=== PATIENT | female | born 1965 | race Caucasian/White ===

== ENCOUNTER 2016-09-23 15:24 | Inpatient (IN) | payer BC ==
[2016-09-23] MEDS ORDERED: SODIUM CHLORIDE 0.9% 1,000 ML IV STA ×2 (18:37)
[2016-09-23] MEDS ORDERED: ONDANSETRON 4 MG/2 ML VIAL IVP STA (18:37)
[2016-09-23 18:44] LABS: Glucose,Whole Blood 467 mg/dL (75-99)
[2016-09-23 18:58] LABS: Appearance,Urine Clear (Clear); Bilirubin,Urine Negative (Negative); Glucose,Urine (UA) 4+ (Negative); Leukocyte Esterase,Urine Negative (Negative); Nitrite,Urine Negative (Negative); Protein,Urine Negative (Negative); Specific Gravity,Urine 1.012 (1.001-1.035); UA Billing (MACRO vs. MICRO) CHEM; Urobilinogen,Urine <2.0 mg/dL (<2.0)
[2016-09-23 19:12] LABS: Basophils # (A) 0.1 k/uL (0-0.2); Basophils % (A) 1 %; CH 29.7; CHCM 27.8; Eosinophils % (A) 0 %; HCT 35.9 % (34.0-46.0); HDW 2.39; HGB 10.3 gm/dL (11.4-16.0); Hypochromasia Marked; Luc # (Auto) 0.14; Luc % (Auto) 2; Lymphocytes # (A) 0.4 k/uL (1.0-4.8); Lymphocytes % (A) 6 %; MCH 30.9 pg (25.0-35.0); MCHC 28.7 g/dL (31.0-37.0); Macrocytosis Marked; Mean Platelet Volume 8.6; Monocytes # (A) 0.5 k/uL (0-1.0); Monocytes % (A) 8 %; Neutrophils # (A) 5.6 k/uL (1.3-7.7); Neutrophils % (A) 83 %; RBC 3.34 m/uL (3.80-5.40); RDW 15.2 % (11.5-15.5); WBC 6.7 k/uL (3.8-10.6); WBC (Perox) 6.36
[2016-09-23 19:13] LABS: MCV 107.4 fL (80.0-100.0)
[2016-09-23 19:22] LABS: ALT 33 U/L (9-52); AST 17 U/L (14-36); Alkaline Phosphatase 65 U/L (38-126); Amylase <30 U/L (30-110); Anion Gap 22 mmol/L; Blood Urea Nitrogen 22 mg/dL (7-17); Chloride 112 mmol/L (98-107); Glucose 343 mg/dL (74-99); Non-African American GFR(MDRD) >60 (>60 ml/min/1.73 sqM); Potassium 3.7 mmol/L (3.5-5.1); Sodium 143 mmol/L (137-145); Total Bilirubin 0.3 mg/dL (0.2-1.3); Total Protein 4.4 g/dL (6.3-8.2)
[2016-09-23 19:24] LABS: Calcium 6.2 mg/dL (8.4-10.2); Carbon Dioxide 9 mmol/L (22-30)
[2016-09-23 19:29] LABS: Ketones,Urine 4+ (Negative)
[2016-09-23] MEDS ORDERED: CALCIUM GLUCONATE 1,000 MG in SODIUM CHLORIDE 0.9% 100 ML IVPB ONE (19:34)
[2016-09-23 19:47] LABS: Creatine Kinase 87 U/L (30-135)
--- NOTE | 2016-09-23 19:58 | XR ---
EXAMINATION TYPE: XR chest 2V DATE OF EXAM: 09/23/2016 7:36 PM COMPARISON: 07/10/2016 HISTORY: Nausea and vomiting TECHNIQUE: Frontal and lateral views of the chest are obtained. FINDINGS: There is patchy linear density at the lung bases. There are no hilar masses. There is no h eart failure. Bony thorax appears intact. IMPRESSION: Patchy basilar atelectasis is present and is the same or worse than last exam. No gross heart failure.
--- NOTE | 2016-09-23 19:59 | XR ---
EXAMINATION TYPE: XR KUB DATE OF EXAM: 09/23/2016 7:36 PM COMPARISON: 07/06/2016 HISTORY: Nausea and vomiting TECHNIQUE: 2 views FINDINGS: There is no sign of intestinal obstruction or pneumoperitoneum. Fecal pattern is normal. Th ere is a left hip prosthesis. There is no sign of a mass. There are no pathologic calcifications over the kidneys. IMPRESSION: Nonacute abdomen. No change.
[2016-09-23 20:00] LABS: Troponin I <0.012 ng/mL (0.000-0.034)
--- NOTE | 2016-09-23 20:06 | ED ---
General Adult HPI - General Chief complaint: Nausea/Vomiting/Diarrhea Stated complaint: Abd Pain/Vomiting Time Seen by Provider: 09/23/16 18:22 Source: patient, RN notes reviewed Mode of arrival: wheelchair Limitations: no limitations - History of Present Illness Initial comments: Patient is a 51-year-old female who presents emergency room today with a chief complaint of symptoms of nausea vomiting that began yesterday. She does admit that she's had some epigastric discomfort. Patient does admit to some radiation up into the chest. Patient states all the symptoms started yesterday. States it feels similar to symptoms that she had when she was diagnosed with diverticulitis in the past. Patient does admit that she's had normal bowel movements and flatulence. She denies any other complaints or symptoms. Patient denies any recent fever, chills, shortness of breath, chest pain, back pain, numbness or tingling, dysuria or hematuria, constipation or diarrhea, headaches or visual changes, or any other complaints. - Related Data Home Medications Medication Instructions Recorded Confirmed HYDROcodone/APAP 10-325MG [[place] 1 tab PO BID 05/14/14 09/23/16 10-325] Chlorthalidone 25 mg PO DAILY 07/06/16 09/23/16 Cyclobenzaprine [Flexeril] 10 mg PO TID 07/06/16 09/23/16 Gabapentin 800 mg PO TID 07/06/16 09/23/16 Cholecalciferol [Vitamin D3] 1,000 unit PO DAILY 08/20/16 09/23/16 Lisinopril [Zestril] 10 mg PO DAILY 08/20/16 09/23/16 Magnesium 400 mg PO DAILY 08/20/16 09/23/16 metFORMIN HCL 1,000 mg PO BID 08/20/16 09/23/16 Insulin Aspart [NovoLOG] See Protocol SQ AC-TID 09/23/16 09/23/16 Allergies Allergy/AdvReac Type Severity Reaction Status Date / Time insulin detemir Allergy Unknown Verified 09/23/16 19:25 [From Levemir] Review of Systems ROS Statement: Those systems with pertinent positive or pertinent negative responses have been documented in the HPI. ROS Other: All systems not noted in ROS Statement are negative. Past Medical History Past Medical History: Cancer, Diabetes Mellitus, Hypertension Additional Past Medical History / Comment(s): Cervical degenerative disc disease , L breast cancer with surgery/chemo and radiation in 2012, NIDDM type II. History of Any Multi-Drug Resistant Organisms: None Reported Past Surgical History: Breast Surgery, Joint Replacement, Orthopedic Surgery Additional Past Surgical History / Comment(s): R breast lumpectomy, L hip arthroplasty, numerous bilateral feet surgeries-neuromas/bone spurs and R ankle fractured 3 times with surgical repairs each time. Mediport removal Past Psychological History: No Psychological Hx Reported Additional Psychological History / Comment(s): Pt resides alone. She is a pharmacist. She helps care for her parents. She is independent. Smoking Status: Former smoker Past Alcohol Use History: Occasional Additional Past Alcohol Use History / Comment(s): Pt started smoking at the age of 15yrs (1979) and quit in 2011 Past Drug Use History: None Reported - Past Family History Father Family Medical History: Congestive Heart Failure (CHF) Mother Family Medical History: No Reported History General Exam - General Exam Comments Initial Comments: General: The patient is awake and alert, in no distress, and does not appear acutely ill. Eye: Pupils are equal, round and reactive to light, extra-ocular movements are intact. No nystagmus. There is normal conjunctiva bilaterally. No signs of icterus. Ears, nose, mouth and throat: There are moist mucous membranes and no oral lesions. Neck: The neck is supple, there is no tenderness or JVD. Cardiovascular: There is a regular rate and rhythm. No murmur, rub or gallop is appreciated. Respiratory: Lungs are clear to auscultation, respirations are non-labored, breath sounds are equal. No wheezes, stridor, rales, or rhonchi. Gastrointestinal: Normal appearance and appear normal bowel sounds. Abdomen soft on palpation. Patient does have tenderness epigastric. No rebound tenderness. No guarding. Musculoskeletal: Normal ROM, no tenderness. Strength 5/5. Sensation intact. Pulses equal bilaterally 2+. Neurological: A&O x 3. CN II-XII intact, There are no obvious motor or sensory deficits. Coordination appears grossly intact. Speech is normal. Skin: Skin is warm and dry and no rashes or lesions are noted. Psychiatric: Cooperative, appropriate mood & affect, normal judgment. Limitations: no limitations Course Vital Signs 09/23/16 15:49 Temperature 97.5 F L Pulse Rate 104 H Respiratory 20 Rate Blood Pressure 133/72 O2 Sat by Pulse 100 Oximetry Medical Decision Making - Medical Decision Making Patient's labs reviewed here in the emergency room. Shows hypocalcemia and hyper glycemia. CO2 is 9. Remaining labs reviewed. Patient feeling better after IV bolus. Patient will be started on a insulin drip has acetone positive. She be admitted for DKA and started on protocol. Patient is from out of town and admitted to hospitalist. - Lab Data Result diagrams: 09/23/16 19:03 09/23/16 19:03 Lab Results 09/23/16 09/23/16 09/23/16 Range/Units 18:43 19:03 19:03 WBC (3.8-10.6) k/uL RBC (3.80-5.40) m/uL Hgb (11.4-16.0) gm/dL Hct (34.0-46.0) % MCV (80.0-100.0) fL MCH (25.0-35.0) pg MCHC (31.0-37.0) g/dL RDW (11.5-15.5) % Plt Count (150-450) k/uL Neutrophils % % Lymphocytes % % Monocytes % % Eosinophils % % Basophils % % Neutrophils # (1.3-7.7) k/uL Lymphocytes # (1.0-4.8) k/uL Monocytes # (0-1.0) k/uL Eosinophils # (0-0.7) k/uL Basophils # (0-0.2) k/uL Hypochromasia Macrocytosis Sodium 143 (137-145) mmol/L Potassium 3.7 (3.5-5.1) mmol/L Chloride 112 H (98-107) mmol/L Carbon Dioxide 9 L* (22-30) mmol/L Anion Gap 22 mmol/L BUN 22 H (7-17) mg/dL Creatinine 0.60 (0.52-1.04) mg/dL Est GFR (MDRD) Af Amer >60 (>60 ml/min/1.73 sqM) Est GFR (MDRD) Non-Af >60 (>60 ml/min/1.73 sqM) Glucose 343 H (74-99) mg/dL POC Glucose (mg/dL) 467 H (75-99) mg/dL POC Glu Family Lawyer ID Susanna Smiley Calcium 6.2 L* (8.4-10.2) mg/dL Total Bilirubin 0.3 (0.2-1.3) mg/dL AST 17 (14-36) U/L ALT 33 (9-52) U/L Alkaline Phosphatase 65 (38-126) U/L Total Creatine Kinase 87 (30-135) U/L Total Protein 4.4 L (6.3-8.2) g/dL Albumin 2.4 L (3.5-5.0) g/dL Amylase <30 L (30-110) U/L Lipase 21 L (23-300) U/L Urine Color Urine Appearance (Clear) Urine pH (5.0-8.0) Ur Specific [place] (1.001-1.035) Urine Protein (Negative) Urine Glucose (UA) (Negative) Urine Ketones (Negative) Urine Blood (Negative) Urine Nitrate (Negative) Urine Bilirubin (Negative) Urine Urobilinogen (<2.0) mg/dL Ur Leukocyte Esterase (Negative) Acetone, Qual Positive (Negative) 09/23/16 09/23/16 Range/Units 19:03 19:05 WBC 6.7 (3.8-10.6) k/uL RBC 3.34 L (3.80-5.40) m/uL Hgb 10.3 L (11.4-16.0) gm/dL Hct 35.9 (34.0-46.0) % MCV 107.4 H D (80.0-100.0) fL MCH 30.9 (25.0-35.0) pg MCHC 28.7 L (31.0-37.0) g/dL RDW 15.2 (11.5-15.5) % Plt Count 209 (150-450) k/uL Neutrophils % 83 % Lymphocytes % 6 % Monocytes % 8 % Eosinophils % 0 % Basophils % 1 % Neutrophils # 5.6 (1.3-7.7) k/uL Lymphocytes # 0.4 L (1.0-4.8) k/uL Monocytes # 0.5 (0-1.0) k/uL Eosinophils # 0.0 (0-0.7) k/uL Basophils # 0.1 (0-0.2) k/uL Hypochromasia Marked Macrocytosis Marked Sodium (137-145) mmol/L Potassium (3.5-5.1) mmol/L Chloride (98-107) mmol/L Carbon Dioxide (22-30) mmol/L Anion Gap mmol/L BUN (7-17) mg/dL Creatinine (0.52-1.04) mg/dL Est GFR (MDRD) Af Amer (>60 ml/min/1.73 sqM) Est GFR (MDRD) Non-Af (>60 ml/min/1.73 sqM) Glucose (74-99) mg/dL POC Glucose (mg/dL) (75-99) mg/dL POC Glu Family Lawyer ID Calcium (8.4-10.2) mg/dL Total Bilirubin (0.2-1.3) mg/dL AST (14-36) U/L ALT (9-52) U/L Alkaline Phosphatase (38-126) U/L Total Creatine Kinase (30-135) U/L Total Protein (6.3-8.2) g/dL Albumin (3.5-5.0) g/dL Amylase (30-110) U/L Lipase (23-300) U/L Urine Color Colorless Urine Appearance Clear (Clear) Urine pH 5.0 (5.0-8.0) Ur Specific [place] 1.012 (1.001-1.035) Urine Protein Negative (Negative) Urine Glucose (UA) 4+ H (Negative) Urine Ketones 4+ H (Negative) Urine Blood Negative (Negative) Urine Nitrate Negative (Negative) Urine Bilirubin Negative (Negative) Urine Urobilinogen <2.0 (<2.0) mg/dL Ur Leukocyte Esterase Negative (Negative) Acetone, Qual (Negative) Disposition Clinical Impression: DKA (diabetic ketoacidoses), Hypocalcemia Disposition: ADMITTED IP TO THIS [facility] Condition: Stable Time of Disposition: 20:05
[2016-09-23] MEDS ORDERED: ONDANSETRON 4 MG/2 ML VIAL IVP PRN (20:49)
[2016-09-23 21:15] LABS: Glucose,Whole Blood 541 mg/dL (75-99)
[2016-09-23] MEDS: INSULIN REGULAR 100 UNIT in SODIUM CHLORIDE 0.9% 100 ML IV SCH (21:28)
[2016-09-23] MEDS: SODIUM CHLORIDE 0.9% 1,000 ML IV SCH (21:30)
[2016-09-23 22:29] LABS: Glucose,Whole Blood >600 mg/dL (75-99)
[2016-09-23 22:31] LABS: Glucose,Whole Blood 572 mg/dL (75-99)
[2016-09-23 23:13] LABS: Hemoglobin A1C 8.5 % (4.2-6.1)
[2016-09-23 23:30] LABS: Glucose,Whole Blood 462 mg/dL (75-99)
[2016-09-24 00:14] LABS: Phosphorous 5.4 mg/dL (2.5-4.5); Potassium 5.5 mmol/L (3.5-5.1)
[2016-09-24 00:27] LABS: Glucose,Whole Blood 404 mg/dL (75-99)
[2016-09-24] MEDS: SODIUM CHLORIDE 0.9% 1,000 ML IV SCH (00:48)
[2016-09-24 01:34] LABS: Glucose,Whole Blood 343 mg/dL (75-99)
[2016-09-24 02:25] LABS: Glucose,Whole Blood 177 mg/dL (75-99)
[2016-09-24 03:26] LABS: Anion Gap 17 mmol/L; Blood Urea Nitrogen 28 mg/dL (7-17); Carbon Dioxide 20 mmol/L (22-30); Chloride 106 mmol/L (98-107); Glucose 147 mg/dL (74-99); Non-African American GFR(MDRD) >60 (>60 ml/min/1.73 sqM); Phosphorous 2.6 mg/dL (2.5-4.5); Potassium 4.7 mmol/L (3.5-5.1); Sodium 143 mmol/L (137-145)
[2016-09-24 03:34] LABS: Glucose,Whole Blood 105 mg/dL (75-99)
[2016-09-24] MEDS: D5-0.45% NACL WITH KCL 20MEQ/L 1,000 ML IV SCH ×2 (04:24→11:07)
[2016-09-24 04:57] LABS: Glucose,Whole Blood 80 mg/dL (75-99)
[2016-09-24 05:35] LABS: Glucose,Whole Blood 105 mg/dL (75-99)
[2016-09-24 06:50] LABS: Glucose,Whole Blood 131 mg/dL (75-99)
[2016-09-24 07:11] LABS: Anion Gap 16 mmol/L; Blood Urea Nitrogen 25 mg/dL (7-17); Carbon Dioxide 19 mmol/L (22-30); Chloride 107 mmol/L (98-107); Glucose 128 mg/dL (74-99); Non-African American GFR(MDRD) >60 (>60 ml/min/1.73 sqM); Potassium 4.7 mmol/L (3.5-5.1); Sodium 142 mmol/L (137-145)
[2016-09-24 08:07] LABS: Glucose,Whole Blood 153 mg/dL (75-99)
[2016-09-24 08:53] LABS: Glucose,Whole Blood 191 mg/dL (75-99)
[2016-09-24] MEDS: INSULIN REGULAR 100 UNIT in SODIUM CHLORIDE 0.9% 100 ML IV SCH (09:31)
[2016-09-24 10:11] LABS: Glucose,Whole Blood 218 mg/dL (75-99)
[2016-09-24 12:10] LABS: Glucose,Whole Blood 219 mg/dL (75-99)
[2016-09-24 13:03] LABS: Anion Gap 12 mmol/L; Blood Urea Nitrogen 20 mg/dL (7-17); Calcium 8.7 mg/dL (8.4-10.2); Carbon Dioxide 21 mmol/L (22-30); Chloride 105 mmol/L (98-107); Glucose 215 mg/dL (74-99); Non-African American GFR(MDRD) >60 (>60 ml/min/1.73 sqM); Phosphorous 2.5 mg/dL (2.5-4.5); Potassium 4.5 mmol/L (3.5-5.1); Sodium 138 mmol/L (137-145)
[2016-09-24 13:09] VITALS: BMI 31.6
[2016-09-24 13:23] LABS: Glucose,Whole Blood 214 mg/dL (75-99)
[2016-09-24 15:44] LABS: Glucose,Whole Blood 286 mg/dL (75-99)
[2016-09-24] MEDS ORDERED: INSULIN GLARGINE 100 UNIT/ML 10 ML VIAL SQ SCH ×2 (16:00→21:00)
[2016-09-24] MEDS: GABAPENTIN 400 MG CAP PO SCH ×2 (16:06→20:40)
[2016-09-24] MEDS: PANTOPRAZOLE 40 MG/10 ML VIAL IVP SCH ×2 (16:06→20:40)
[2016-09-24] MEDS: CYCLOBENZAPRINE 10 MG TAB PO SCH ×2 (16:06→20:40)
[2016-09-24 16:30] LABS: Anion Gap 12 mmol/L; Blood Urea Nitrogen 17 mg/dL (7-17); Calcium 8.9 mg/dL (8.4-10.2); Carbon Dioxide 24 mmol/L (22-30); Chloride 102 mmol/L (98-107); Glucose 261 mg/dL (74-99); Non-African American GFR(MDRD) >60 (>60 ml/min/1.73 sqM); Phosphorous 2.2 mg/dL (2.5-4.5); Potassium 4.8 mmol/L (3.5-5.1); Sodium 138 mmol/L (137-145)
[2016-09-24] MEDS: LACTATED RINGERS 1,000 ML IV SCH ×2 (17:11→20:40)
[2016-09-24 17:13] LABS: Glucose,Whole Blood 243 mg/dL (75-99)
[2016-09-24] MEDS: INSULIN LISPRO (humaLOG) 300 UNIT/3 ML VIAL SQ SCH ×2 (17:23→20:39)
--- NOTE | 2016-09-24 17:39 | HP ---
DATE OF ADMISSION: This patient is a 51-year-old who came in with complaints of nausea, vomiting and epigastric abdominal pain which is burning sensation. Patient was found to be in DKA. Patient's anion gap resolved. Patient has issues in the past. Patient was diagnosed with type 2 diabetes mellitus. My suspicion is that patient may have type 1 diabetes mellitus. Patient was found to be in DKA. Patient's DKA resolved. Apparently patient has issues with Lantus and patient became hypoglycemic with 15 units of Lantus in the past, although I am going to start her on Lantus because she is definitely insulin-deficient, even if it is type 1 or type 2 diabetes mellitus, because of which patient ended up having DKA with anion gap of 23. Because of that reason I had an extensive discussion with the patient and I instructed that patient needs to stay with someone at least for a few days on 10 units of Lantus and sliding scale insulin. Metformin may not help her, because patient is definitely insulin-deficient. Patient may actually have type 1 diabetes mellitus rather than type 2. Patient denied any fever, chills, dysuria. Patient denied any cough, runny nose. REVIEW OF SYSTEMS: CONSTITUTIONAL: No fever, no malaise, no fatigue. HEENT: No recent visual problems or hearing problems. Denied any sore throat. CARDIOVASCULAR: No chest pain, orthopnea, PND, no palpitations, no syncope. PULMONARY: No shortness of breath, no cough, no hemoptysis. GASTROINTESTINAL: As described in HPI. NEUROLOGICAL: No headaches, no weakness, no numbness. HEMATOLOGICAL: Denies any bleeding or petechiae. GENITOURINARY: Denies any burning micturition, frequency, or urgency. MUSCULOSKELETAL/RHEUMATOLOGICAL: Denies any joint pain, swelling, or any muscle pain. ENDOCRINE: Denies any polyuria or polydipsia. The rest of the 14 point review of systems is negative. HOME MEDICATIONS: 1. Ecotrin. 2. Acetaminophen. 3. Chlorthalidone. 4. Cyclobenzaprine. 5. Gabapentin. 6. Cholecalciferol. 7. Magnesium. 8. Metformin. 9. Insulin Aspart. ALLERGIES: INSULIN LEVEMIR. Past medical history is significant for: 1. Breast cancer with history of lumpectomy in the past. 2. Diabetes mellitus; I believe it is type 1 diabetes mellitus. 3. Hypertension. 4. Cervical degenerative disc disease. 5. Right breast lumpectomy. 6. Left hip arthroplasty. SOCIAL HISTORY: Former smoker. Quit smoking years ago. Occasional alcohol use. Denied any drug abuse. FAMILY HISTORY: Father had congestive heart failure. I do not have any mother's history available at this point of time. PHYSICAL EXAMINATION: VITAL SIGNS: Temperature 99.0, pulse of 102, respiratory rate of 18, blood pressure 127/74. Saturating at 94% on room air. GENERAL: The patient is alert and oriented x3, not in any acute distress. Well developed, well nourished. HEENT: Pupils are round and equally reacting to light. EOMI. No scleral icterus. No conjunctival pallor. Normocephalic, atraumatic. No pharyngeal erythema. No thyromegaly. CARDIOVASCULAR: S1 and S2 present. No murmurs, rubs, or gallops. PULMONARY: Chest is clear to auscultation, no wheezing or crackles. ABDOMEN: Soft, nontender, nondistended, normoactive bowel sounds. No palpable organomegaly. MUSCULOSKELETAL: No joint swelling or deformity. EXTREMITIES: No cyanosis, clubbing, or pedal edema. NEUROLOGICAL: Gross neurological examination did not reveal any focal deficits. SKIN: No rashes. LABORATORY DATA: CBC, CMP are abnormal for anion gap and elevated potassium when she came in. Elevated potassium secondary to metabolic acidosis secondary to diabetic ketoacidosis. Creatinine was 1.2; now it is 0.8. Patient's anion gap resolved. Blood sugars improved. When patient came in, her blood sugar was 563. UA was reviewed. Patient has elevated MCV, because of which I will obtain a B12 level. ASSESSMENT AND PLAN: 1. Metabolic acidosis secondary to diabetic ketoacidosis, which improved. Patient will be transitioned to Lantus. Will start her on diet with sliding scale insulin with meals. Patient has history of hypoglycemic episodes in the past with insulin. Management as mentioned above in the history itself. 2. Hypertension. Hold off anti-hypertensive medications because of concerns about intravascular volume depletion and drop in blood pressure. Patient is on lisinopril and chlorthalidone, both of which will be held. 3. Acute renal failure due to intravascular volume depletion from diabetic ketoacidosis, excessive diuresis. 4. Epigastric abdominal pain secondary to diabetic ketoacidosis versus gastritis. Patient was started on Protonix for that. 5. Peripheral neuropathy secondary to diabetic neuropathy. 6. Tachycardia secondary to intravascular volume depletion. Patient's hemoglobin A1C is 8.5. I strongly believe patient will need long-acting insulin. 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
[2016-09-24 20:36] LABS: Glucose,Whole Blood 217 mg/dL (75-99)
[2016-09-24] MEDS: HYDROcodone/APAP 10-325MG 1 EACH TAB PO SCH (20:38)
[2016-09-25 00:20] VITALS: RESP 16
[2016-09-25] MEDS: LACTATED RINGERS 1,000 ML IV SCH ×2 (06:10→08:56)
[2016-09-25 06:13] LABS: Glucose,Whole Blood 197 mg/dL (75-99)
[2016-09-25] MEDS: INSULIN LISPRO (humaLOG) 300 UNIT/3 ML VIAL SQ SCH ×2 (06:34→12:46)
[2016-09-25] MEDS: HYDROcodone/APAP 10-325MG 1 EACH TAB PO SCH (06:43)
[2016-09-25] MEDS: PANTOPRAZOLE 40 MG/10 ML VIAL IVP SCH (08:57)
[2016-09-25] MEDS ORDERED: MAGNESIUM OXIDE 400 MG TAB PO SCH (09:00)
[2016-09-25] MEDS: GABAPENTIN 400 MG CAP PO SCH (09:00)
[2016-09-25] MEDS: CYCLOBENZAPRINE 10 MG TAB PO SCH (09:00)
[2016-09-25 11:47] LABS: Glucose,Whole Blood 247 mg/dL (75-99)
[2016-09-25] MEDS ORDERED: CHOLECALCIFEROL 1,000 UNIT TAB PO SCH (12:00)
[2016-09-25 13:44] VITALS: BP 139/91; PULSE 81; TEMP 98.4
--- NOTE | 2016-09-25 14:11 | US ---
EXAMINATION TYPE: US gallbladder DATE OF EXAM: 09/25/2016 11:56 AM COMPARISON: CT abd/chest/pelvis 07/09/2016 CLINICAL HISTORY: elevated liver enzymes. EXAM MEASUREMENTS: Liver Length: 16.8 cm Gallbladder Wall: 0.2 cm CBD: 0.6 cm Right Kidney: 10.2x 4.2 x 5.0 cm FINDINGS: Pancreas: Obscured by bowel gas Liver: slightly inhomogeneous with a diffuse mottled appearance Gallbladder: no stones Evidence for sonographic Miranda's sign: no CBD: wnl Right Kidney: No hydronephrosis, nephrolithiasis or masses seen IMPRESSION: 1. Diffuse heterogeneous pattern of liver is nonspecific. Can be seen with fatty infiltration or diff use hepatocellular disease including hepatitis. 2. No gallstones.
--- NOTE | 2016-09-26 15:05 | DS ---
DATE OF ADMISSION: 09/23/2016 DATE OF DISCHARGE: 09/25/2016 Patient is a 51-year-old who came in and admitted for diabetic ketoacidosis. The patient is not on Lantus. Patient apparently had hypoglycemic episodes in the past because of the Lantus. Although patient is definitely insulin deficient., I will need a long-acting insulin. Patient most probably has type 1 diabetes mellitus. Even she has type 2 diabetes mellitus patient is definitely insulin deficient. Because of that reason, oral hypoglycemics will not be effective ( ) counseling. I am discharging her on 15 units of Lantus. Apparently, the patient was on that dose of Lantus. Will watch her overnight on 15 units of Lantus. In spite of not eating, patient's blood sugars remained in about 200s on 15 units of Lantus because of which I will go ahead and discharge her 15 units of Lantus, follow with primary care physician and sliding scale with each meal. Patient's diet was advanced. Patient is able to tolerate diet. Patient was complaining of epigastric cramping sensation and ultrasound of the abdomen is negative for any cholelithiasis and patient probably has gastritis. The patient will be discharged today in stable medical condition to home. The patient is able to tolerate soft diet. Patient was seen and examined on the day of discharge. Vitals are stable. ASSESSMENT AND PLAN: 1. Metabolic acidosis secondary to diabetic ketoacidosis . 2. Hypertension. 3. Diabetes mellitus mostly type 1 diabetes mellitus. 4. Acute renal failure due to intravascular volume depletion, which improved at this point of time. 5. Patient has gastritis for which patient will continue her Protonix. 6. Peripheral neuropathy secondary to diabetic neuropathy. 7. Tachycardia secondary intravascular volume depletion , which resolved. Patient will be discharged on Prilosec and 15 units of Lantus and the rest of the medications will be continued ( ). Patient will follow with her primary care physician in 3 to 5 days. Activity as tolerated. Cardiac diet. I spent greater than 35 minutes in total discharge process.
== END 2016-09-25 16:43 | disposition home or self-care (01) | DRG 638 ==
LOC: EC 15:24 → 6SEL 20:06
PROVIDERS: ADMIT Internal Medicine; ATTEND Internal Medicine
DX: E10.10 Type 1 diabetes mellitus with ketoacidosis without coma (principal); N17.9 Acute kidney failure, unspecified; E10.40 Type 1 diabetes mellitus with diabetic neuropathy, unspecified; E83.51 Hypocalcemia; K29.70 Gastritis, unspecified, without bleeding; I10 Essential (primary) hypertension; E86.9 Volume depletion, unspecified; R00.0 Tachycardia, unspecified; R11.2 Nausea with vomiting, unspecified; R19.7 Diarrhea, unspecified; M50.30 Other cervical disc degeneration, unspecified cervical region; Z96.642 Presence of left artificial hip joint; Z87.891 Personal history of nicotine dependence; Z82.49 Family history of ischemic heart disease and other diseases of the circulatory system; Z92.3 Personal history of irradiation; Z92.21 Personal history of antineoplastic chemotherapy; Z79.4 Long term (current) use of insulin; Z79.84 Long term (current) use of oral hypoglycemic drugs; Z85.3 Personal history of malignant neoplasm of breast; Z79.82 Long term (current) use of aspirin; Z79.899 Other long term (current) drug therapy; Z88.8 Allergy status to other drugs, medicaments and biological substances; Z87.19 Personal history of other diseases of the digestive system; Z87.81 Personal history of (healed) traumatic fracture; Z90.11 Acquired absence of right breast and nipple
CPT/HCPCS: 36415; 71020; 74000; 76705; 80048; 80051; 80053; 81003; 82009; 82150; 82550; 82553; 82565; 82947; 83036; 83690; 84100; 84484; 84520; 85025; 87086; 93005; 96361; 96365; 96375; 99285

== ENCOUNTER 2018-12-12 22:17 | Emergency (ER) | payer BC ==
[2018-12-12 22:30] VITALS: TEMP 97.6
[2018-12-12 22:46] LABS: Glucose,Whole Blood 52 mg/dL (75-99)
[2018-12-12] MEDS ORDERED: DEXTROSE 50%-WATER 50 ML SYRINGE IVP STA ×2 (22:46→23:33)
--- NOTE | 2018-12-12 22:49 | ED ---
General Adult HPI - General Chief complaint: Recheck/Abnormal Lab/Rx Stated complaint: Hypoglycemia Time Seen by Provider: 12/12/18 22:30 Source: patient, EMS, RN notes reviewed Mode of arrival: EMS Limitations: no limitations - History of Present Illness Initial comments: 53-year-old female presenting for evaluation of hypoglycemia. Patient is a type II diabetic currently on Lantus, and metformin. She states she has been hypoglycemic throughout the day today. She's had readings in the 40s. She's had associated symptoms of lightheadedness, generalized weakness and diaphoresis. She is not on any oral hypoglycemic medications. She's had no fas t acting insulin today. She did take 18 units of Lantus this morning. She has been eating throughout the day and is also had sugared beverages. Transported by EMS, given 2 rounds of oral glucose as well as 1 amp of dextrose. Blood sugar upon arrival is 50 - Related Data Home Medications Medication Instructions Recorded Confirmed Cyclobenzaprine [Flexeril] 10 mg PO TID 07/06/16 12/12/18 Gabapentin 800 mg PO TID 07/06/16 12/12/18 Magnesium 400 mg PO HS 08/20/16 12/12/18 metFORMIN HCL 1,000 mg PO BID 08/20/16 12/12/18 Dulaglutide [Trulicity] 1.5 mg SQ MO 12/12/18 12/12/18 Insulin Glargine [Lantus] 18 unit SQ DAILY 12/12/18 12/12/18 traMADol HCL [Ultram] 50 mg PO BID 12/12/18 12/12/18 Allergies Allergy/AdvReac Type Severity Reaction Status Date / Time insulin detemir Allergy Unknown Verified 12/12/18 22:38 [From Levemir] Review of Systems ROS Statement: Those systems with pertinent positive or pertinent negative responses have been documented in the HPI. ROS Other: All systems not noted in ROS Statement are negative. Past Medical History Past Medical History: Cancer, Diabetes Mellitus, Hypertension Additional Past Medical History / Comment(s): Cervical degenerative disc disease, L breast cancer with surgery/chemo and radiation in 2011, NIDDM type II. History of Any Multi-Drug Resistant Organisms: None Reported Past Surgical History: Breast Surgery, Joint Replacement, Orthopedic Surgery Additional Past Surgical History / Comment(s): R breast lumpectomy, L hip arthroplasty, numerous bilateral feet surgeries-neuromas/bone spurs and R ankle fractured 3 times with surgical repairs each time. Mediport removal Past Anesthesia/Blood Transfusion Reactions: No Reported Reaction Past Psychological History: No Psychological Hx Reported Additional Psychological History / Comment(s): Pt resides alone. She is a pharmacist. She helps care for her parents. She is independent. Smoking Status: Former smoker Past Alcohol Use History: Occasional Additional Past Alcohol Use History / Comment(s): Pt started smoking at the age of 15yrs (1979) and quit in 2011 Past Drug Use History: None Reported - Past Family History Father Family Medical History: Congestive Heart Failure (CHF) Mother Family Medical History: Cancer Additional Family Medical History / Comment(s): breast cancer General Exam Limitations: no limitations General appearance: alert, in no apparent distress Head exam: Present: atraumatic, normocephalic Eye exam: Present: normal appearance, PERRL ENT exam: Present: mucous membranes dry Neck exam: Present: normal inspection. Absent: tenderness, meningismus Respiratory exam: Present: normal lung sounds bilaterally. Absent: respiratory distress, wheezes Cardiovascular Exam: Present: regular rate, normal rhythm GI/Abdominal exam: Present: soft. Absent: distended, tenderness, guarding Extremities exam: Present: normal inspection, normal capillary refill. Absent: pedal edema Neurological exam: Present: alert, oriented X3, CN II-XII intact. Absent: motor sensory deficit Psychiatric exam: Present: normal affect, normal mood Skin exam: Present: warm, dry, intact. Absent: cyanosis, diaphoretic Course Vital Signs 12/12/18 22:24 Temperature 97.6 F Pulse Rate 76 Respiratory 18 Rate Blood Pressure 130/98 O2 Sat by Pulse 98 Oximetry Medical Decision Making - Medical Decision Making 53-year-old female presenting for hypoglycemia. Patient given amp of dextrose by EMS, given a second amp of dextrose in the emergency department. Blood sugar does respond, normalizes, stabilizes. She is able to eat. She is asymptomatic after treatment. No other laboratory testing is unremarkable. Patient will decrease Lantus dose, and short acting insulin awaiting trended sugar. Please follow up with primary care physician. - Lab Data Result diagrams: 12/12/18 22:53 12/12/18 22:53 Lab Results 12/12/18 12/12/18 12/12/18 Range/Units 22:35 22:53 22:53 WBC 4.8 (3.8-10.6) k/uL RBC 4.24 (3.80-5.40) m/uL Hgb 12.1 (11.4-16.0) gm/dL Hct 38.7 (34.0-46.0) % MCV 91.3 (80.0-100.0) fL MCH 28.4 (25.0-35.0) pg MCHC 31.1 (31.0-37.0) g/dL RDW 14.3 (11.5-15.5) % Plt Count 258 (150-450) k/uL Neutrophils % 66 % Lymphocytes % 19 % Monocytes % 6 % Eosinophils % 6 % Basophils % 0 % Neutrophils # 3.1 (1.3-7.7) k/uL Lymphocytes # 0.9 L (1.0-4.8) k/uL Monocytes # 0.3 (0-1.0) k/uL Eosinophils # 0.3 (0-0.7) k/uL Basophils # 0.0 (0-0.2) k/uL Hypochromasia Slight Sodium 138 (137-145) mmol/L Potassium 4.9 (3.5-5.1) mmol/L Chloride 105 (98-107) mmol/L Carbon Dioxide 19 L (22-30) mmol/L Anion Gap 14 mmol/L BUN 22 H (7-17) mg/dL Creatinine 1.02 (0.52-1.04) mg/dL Est GFR (CKD-EPI)AfAm 72 (>60 ml/min/1.73 sqM) Est GFR (CKD-EPI)NonAf 63 (>60 ml/min/1.73 sqM) Glucose 45 L* (74-99) mg/dL POC Glucose (mg/dL) 52 L (75-99) mg/dL POC Glu Pharmacy Informatics Manager ID Liz Plascencia A Calcium 10.1 (8.4-10.2) mg/dL Total Bilirubin 0.6 (0.2-1.3) mg/dL AST 46 H (14-36) U/L ALT 27 (9-52) U/L Alkaline Phosphatase 86 (38-126) U/L Total Protein 8.0 (6.3-8.2) g/dL Albumin 4.9 (3.5-5.0) g/dL 12/12/18 12/13/18 Range/Units 23:21 00:02 WBC (3.8-10.6) k/uL RBC (3.80-5.40) m/uL Hgb (11.4-16.0) gm/dL Hct (34.0-46.0) % MCV (80.0-100.0) fL MCH (25.0-35.0) pg MCHC (31.0-37.0) g/dL RDW (11.5-15.5) % Plt Count (150-450) k/uL Neutrophils % % Lymphocytes % % Monocytes % % Eosinophils % % Basophils % % Neutrophils # (1.3-7.7) k/uL Lymphocytes # (1.0-4.8) k/uL Monocytes # (0-1.0) k/uL Eosinophils # (0-0.7) k/uL Basophils # (0-0.2) k/uL Hypochromasia Sodium (137-145) mmol/L Potassium (3.5-5.1) mmol/L Chloride (98-107) mmol/L Carbon Dioxide (22-30) mmol/L Anion Gap mmol/L BUN (7-17) mg/dL Creatinine (0.52-1.04) mg/dL Est GFR (CKD-EPI)AfAm (>60 ml/min/1.73 sqM) Est GFR (CKD-EPI)NonAf (>60 ml/min/1.73 sqM) Glucose (74-99) mg/dL POC Glucose (mg/dL) 196 H 231 H (75-99) mg/dL POC Glu Pharmacy Informatics Manager ID Liz Plascencia A Robinson, Kelly, A Calcium (8.4-10.2) mg/dL Total Bilirubin (0.2-1.3) mg/dL AST (14-36) U/L ALT (9-52) U/L Alkaline Phosphatase (38-126) U/L Total Protein (6.3-8.2) g/dL Albumin (3.5-5.0) g/dL Disposition Clinical Impression: Hypoglycemia Disposition: HOME SELF-CARE Condition: Fair Instructions (If sedation given, give patient instructions): Hypoglycemia in a Person with Diabetes (ED), What to Do if Your Blood Sugar is Low (ED) Additional Instructions: Please follow up with the primary care physician. Is patient prescribed a controlled substance at d/c from ED?: No Referrals: Nonstaff,Physician [Primary Care Provider] - 1-2 days Time of Disposition: 01:18
[2018-12-12 23:03] LABS: Basophils % (A) 0 %; Eosinophils # (A) 0.3 k/uL (0-0.7); Eosinophils % (A) 6 %; HCT 38.7 % (34.0-46.0); HGB 12.1 gm/dL (11.4-16.0); Hypochromasia Slight; Lymphocytes # (A) 0.9 k/uL (1.0-4.8); Lymphocytes % (A) 19 %; MCH 28.4 pg (25.0-35.0); MCHC 31.1 g/dL (31.0-37.0); MCV 91.3 fL (80.0-100.0); Mean Platelet Volume 7.4; Monocytes # (A) 0.3 k/uL (0-1.0); Monocytes % (A) 6 %; Neutrophils # (A) 3.1 k/uL (1.3-7.7); Neutrophils % (A) 66 %; Platelet Count 258 k/uL (150-450); RBC 4.24 m/uL (3.80-5.40); RDW 14.3 % (11.5-15.5); WBC 4.8 k/uL (3.8-10.6)
[2018-12-12 23:15] LABS: Albumin 4.9 g/dL (3.5-5.0); Calcium 10.1 mg/dL (8.4-10.2); Potassium 4.9 mmol/L (3.5-5.1); Total Bilirubin 0.6 mg/dL (0.2-1.3)
[2018-12-12 23:23] LABS: Glucose,Whole Blood 196 mg/dL (75-99)
[2018-12-12] MEDS ORDERED: DEXTROSE 5%-0.45% NACL 1,000 ML IV ONE (23:28)
[2018-12-13 00:03] LABS: Glucose,Whole Blood 231 mg/dL (75-99)
[2018-12-13 01:23] VITALS: BP 118/76; PULSE 70; RESP 20
[2018-12-13 01:25] LABS: Glucose,Whole Blood 302 mg/dL (75-99)
== END 2018-12-13 01:33 | disposition home or self-care (01) ==
LOC: EC 22:17
DX: E11.649 Type 2 diabetes mellitus with hypoglycemia without coma (principal); R53.1 Weakness; R42 Dizziness and giddiness; I10 Essential (primary) hypertension; Z85.3 Personal history of malignant neoplasm of breast; Z87.891 Personal history of nicotine dependence; Z87.81 Personal history of (healed) traumatic fracture; Z92.21 Personal history of antineoplastic chemotherapy; Z92.3 Personal history of irradiation; Z96.652 Presence of left artificial knee joint; Z98.890 Other specified postprocedural states; Z79.4 Long term (current) use of insulin; Z79.899 Other long term (current) drug therapy; Z88.8 Allergy status to other drugs, medicaments and biological substances
CPT/HCPCS: 36415; 80053; 85025; 96374; 99285

== ENCOUNTER 2020-08-16 14:28 | Emergency (ER) | payer BC ==
[2020-08-16 14:45] VITALS: TEMP 98.2
[2020-08-16] MEDS ORDERED: KETOROLAC 15 MG/ML 1 ML VIAL IVP STA (14:53)
[2020-08-16] MEDS ORDERED: methylPREDNISolone SOD SUCCI 125 MG/2 ML VIAL IV STA (14:53)
--- NOTE | 2020-08-16 15:36 | XR ---
EXAM: XR Lumbosacral Spine, 2 or 3 Views CLINICAL HISTORY: ITS.REASON XR Reason: back pain, radiculopathy TECHNIQUE: Frontal and lateral views of the lumbar spine and sacrum. COMPARISON: None FINDINGS: Bones: No vertebral body height loss to suggest acute fracture. No subluxation. Degenerative changes of the spine. Soft tissues: No acute finding. IMPRESSION: No acute abnormality.
--- NOTE | 2020-08-16 15:37 | XR ---
EXAM: XR Pelvis, 1 or 2 Views CLINICAL HISTORY: ITS.REASON XR Reason: pain TECHNIQUE: Frontal view of the pelvis. COMPARISON: None FINDINGS: Bones/joints: No displaced fracture or dislocation identified. Left hip arthroplasty. No evidence of hardware complication. Soft tissues: Normal. IMPRESSION: Left hip arthroplasty. No evidence of hardware complication.
--- NOTE | 2020-08-16 15:53 | ED ---
General Adult HPI - General Chief complaint: Back Pain/Injury Stated complaint: Back Pain Time Seen by Provider: 08/16/20 14:32 Source: patient, EMS, RN notes reviewed, old records reviewed Mode of arrival: EMS Limitations: no limitations - History of Present Illness Initial comments: Patient showed mead since returned today for lower back and left-sided leg pain. She has history of sciatica and is been seeing her PCP getting steroid and anti-inflammatory injections for the past few weeks. Patient arrived via EMS was given morphine and Zofran. She reports her symptoms started after sleeping wrong a few weeks ago. Patient denies saddle anesthesia. - Related Data Home Medications Medication Instructions Recorded Confirmed Cyclobenzaprine [Flexeril] 10 mg PO TID 07/06/16 12/12/18 Gabapentin 800 mg PO TID 07/06/16 12/12/18 Magnesium 400 mg PO HS 08/20/16 12/12/18 metFORMIN HCL 1,000 mg PO BID 08/20/16 12/12/18 Dulaglutide [Trulicity] 1.5 mg SQ MO 12/12/18 12/12/18 Insulin Glargine [Lantus] 18 unit SQ DAILY 12/12/18 12/12/18 traMADol HCL [Ultram] 50 mg PO BID 12/12/18 12/12/18 Previous Rx's Medication Instructions Recorded Cyclobenzaprine [Flexeril] 10 mg PO TID #12 tab 08/16/20 dexAMETHasone [Dexamethasone] 0.75 mg PO DAILY #12 tab 08/16/20 Allergies Allergy/AdvReac Type Severity Reaction Status Date / Time insulin detemir Allergy Unknown Verified 08/16/20 14:41 [From Levemir] Review of Systems ROS Statement: Those systems with pertinent positive or pertinent negative responses have been documented in the HPI. ROS Other: All systems not noted in ROS Statement are negative. Past Medical History Past Medical History: Cancer, Diabetes Mellitus, Hypertension Additional Past Medical History / Comment(s): Cervical degenerative disc disease, L breast cancer with surgery/chemo and radiation in 2011, NIDDM type II. History of Any Multi-Drug Resistant Organisms: None Reported Past Surgical History: Breast Surgery, Joint Replacement, Orthopedic Surgery Additional Past Surgical History / Comment(s): R breast lumpectomy, L hip arthroplasty, numerous bilateral feet surgeries-neuromas/bone spurs and R ankle fractured 3 times with surgical repairs each time. Mediport removal Past Anesthesia/Blood Transfusion Reactions: No Reported Reaction Past Psychological History: No Psychological Hx Reported Smoking Status: Never smoker Past Alcohol Use History: Occasional Past Drug Use History: None Reported - Past Family History Father Family Medical History: Congestive Heart Failure (CHF) Mother Family Medical History: Cancer Additional Family Medical History / Comment(s): breast cancer General Exam - General Exam Comments Initial Comments: 55-year-old female. Alert and oriented. No acute distress. Limitations: no limitations General appearance: alert, in no apparent distress Head exam: Present: atraumatic, normocephalic, normal inspection Eye exam: Present: normal appearance, PERRL, EOMI. Absent: scleral icterus, conjunctival injection, periorbital swelling ENT exam: Present: normal exam, mucous membranes moist Neck exam: Present: normal inspection. Absent: tenderness, meningismus, lymphadenopathy Respiratory exam: Present: normal lung sounds bilaterally. Absent: respiratory distress, wheezes, rales, rhonchi, stridor Cardiovascular Exam: Present: regular rate, normal rhythm, normal heart sounds. Absent: systolic murmur, diastolic murmur, rubs, gallop, clicks GI/Abdominal exam: Present: soft, normal bowel sounds. Absent: distended, tenderness, guarding, rebound, rigid Extremities exam: Present: normal inspection, full ROM, normal capillary refill. Absent: tenderness, pedal edema, joint swelling, calf tenderness Back exam: Present: normal inspection, tenderness (Lower spine tenderness) Neurological exam: Present: alert, oriented X3, CN II-XII intact Psychiatric exam: Present: normal affect, normal mood Skin exam: Present: warm, dry, intact, normal color. Absent: rash Course Vital Signs 08/16/20 14:41 Temperature 98.2 F Pulse Rate 64 Respiratory 18 Rate Blood Pressure 146/96 O2 Sat by Pulse 97 Oximetry Medical Decision Making - Medical Decision Making This is a 55 rolled female presents to the ER today for evaluation for left hip pain with range of motion and ambulation. Patient IV EMS was given morphine and Zofran prior to arrival. Her pain is and distribution of sciatic nerve had tenderness over the sciatic notch. At this time patient's x-rays of lumbar spin e and hip showed no evidence of acute fracture. Patient informed of these results. I did discuss the Patient to follow-up with primary care doctor to return to ER if any alarming signs or symptoms occur. Patient will be given even Toradol and Solu-Medrol emergency department and advised Ortho-back specialist follow-up. - Radiology Data Radiology results: report reviewed Of her spine x-ray shows no acute abnormality. X-ray left hip shows arthroplasty. No evidence of hardware complication. Disposition Clinical Impression: Back pain, Sciatica Disposition: HOME SELF-CARE Condition: Good Instructions (If sedation given, give patient instructions): Acute Low Back Pain (ED) Additional Instructions: Patient has a passive stretching. Follow-up with orthopedic back specialist and primary care doctor. Return to the ED if any alarming signs or symptoms occur. Prescriptions: dexAMETHasone [Dexamethasone] 0.75 mg PO DAILY #12 tab Cyclobenzaprine [Flexeril] 10 mg PO TID #12 tab Is patient prescribed a controlled substance at d/c from ED?: No Referrals: Nonstaff,Physician [Primary Care Provider] - 1-2 days Gianni Farmer DO [Doctor of Osteopathic Medicine] - 1-2 days Time of Disposition: 15:51
[2020-08-16 16:11] VITALS: BP 136/81; PULSE 66; RESP 16
== END 2020-08-16 16:09 | disposition home or self-care (01) ==
LOC: EC 14:28
DX: M54.42 Lumbago with sciatica, left side (principal); E11.9 Type 2 diabetes mellitus without complications; I10 Essential (primary) hypertension; Z79.4 Long term (current) use of insulin; Z79.899 Other long term (current) drug therapy; Z88.8 Allergy status to other drugs, medicaments and biological substances; Z85.3 Personal history of malignant neoplasm of breast; Z96.642 Presence of left artificial hip joint; Z92.21 Personal history of antineoplastic chemotherapy; Z92.3 Personal history of irradiation
CPT/HCPCS: 72100; 73502; 99284; 96374; 96375; J2930; J1885